=== PATIENT | male | born 1950 | race Caucasian/White ===

== ENCOUNTER → 2018-09-20 | Outpatient (CLI) | payer MEDICARE ==
[~2018-09-20] MED LIST: CLOP75 PO; Prinivil10 MG PO
[2018-09-23 14:30] LABS: Stool Occult Bld Immuno 1 Negative (NEGATIVE); Stool Occult Bld Immuno 2 Negative (NEGATIVE)
== END | disposition home or self-care (01) ==
LOC: LAB 09:00 → LAB SHORT 09:00 → LAB FUT 09-04 10:30
PROVIDERS: Internal Medicine Gastroenterology
DX: K57.90 Diverticulosis of intestine, part unspecified, without perforation or abscess without bleeding (principal); Z86.010 Personal history of colon polyps
CPT/HCPCS: 82274

== ENCOUNTER → 2019-06-02 | Outpatient (CLI) | payer BC ==
[2019-06-02 16:06] LABS: Percent Saturation 29.2 % (20.0-50.0)
== END | disposition home or self-care (01) ==
LOC: LAB 12:07 → LAB SHORT 12:07
PROVIDERS: Internal Medicine Hematology & Oncology
DX: E83.118 Other hemochromatosis (principal)
CPT/HCPCS: 36415; 82728; 83540; 83550

== ENCOUNTER → 2022-01-26 | Outpatient (CLI) | payer BC ==
[2022-01-26 14:50] LABS: BASOPHILS ABSOLUTE AUTO 0.13 K/mm3 (0.00-0.23); BASOPHILS PERCENT AUTO 1 % (0-2); EOSINOPHILS ABSOLUTE AUTO 0.19 K/mm3 (0.00-0.68); EOSINOPHILS PERCENT AUTO 2 % (0-6); Hematocrit 52.5 % (37.0-53.0); Hemoglobin 17.6 g/dL (13.5-17.5); IMMATURE GRAN ABSOLUTE AUTO 0.05 K/mm3 (0.00-0.10); IMMATURE GRAN PERCENT AUTO 1 % (0-1); LYMPHOCYTES ABSOLUTE AUTO 2.26 K/mm3 (0.84-5.20); LYMPHOCYTES PERCENT AUTO 24 % (21-46); MONOCYTES ABSOLUTE AUTO 1.02 K/mm3 (0.16-1.47); MONOCYTES PERCENT AUTO 11 % (4-13); Mean Corpuscular HGB 26.7 pg (26.0-34.0); Mean Corpuscular HGB Conc 33.5 g/dL (31.5-36.5); Mean Corpuscular Volume 80 fL (80-100); NEUTROPHILS PERCENT AUTO 61 % (41-73); Platelet Count 715 K/mm3 (150-400); RDW Standard Deviation 40.3 fL (35.1-46.3); Red Blood Cell Count 6.58 M/mm3 (4.30-5.90); White Blood Cell Count 9.35 K/mm3 (4.00-11.30)
[2022-01-26 14:58] LABS: Albumin, Blood 3.6 g/dL (3.4-5.0); Albumin/Globulin Ratio 1.2 (0.8-1.8); Bilirubin, Total 0.5 mg/dL (0.1-1.0); Bun/Creatinine Ratio 26.6 (12.0-20.0); Calcium, Blood 8.8 mg/dL (8.5-10.1); Creatinine, Blood 0.75 mg/dL (0.60-1.20); Percent Saturation 15.1 % (20.0-50.0); Phosphorus, Blood 3.8 mg/dL (2.5-4.9); Potassium, Blood 5.2 mmol/L (3.5-5.5); Total Protein, Blood 6.6 g/dL (6.4-8.2)
== END | disposition home or self-care (01) ==
LOC: LAB SHORT 11:24 → LAB 11:24
PROVIDERS: Internal Medicine Hematology & Oncology
DX: D45 Polycythemia vera (principal)
CPT/HCPCS: 80053; 83540; 83550; 84100; 85025

== ENCOUNTER → 2022-06-16 | Outpatient (CLI) | payer BC ==
[2022-06-16 15:17] LABS: BASOPHILS ABSOLUTE AUTO 0.16 K/mm3 (0.00-0.23); BASOPHILS PERCENT AUTO 2 % (0-2); EOSINOPHILS PERCENT AUTO 2 % (0-6); Hemoglobin 16.9 g/dL (13.5-17.5); IMMATURE GRAN ABSOLUTE AUTO 0.05 K/mm3 (0.00-0.10); IMMATURE GRAN PERCENT AUTO 1 % (0-1); LYMPHOCYTES ABSOLUTE AUTO 1.93 K/mm3 (0.84-5.20); LYMPHOCYTES PERCENT AUTO 20 % (21-46); MONOCYTES ABSOLUTE AUTO 1.07 K/mm3 (0.16-1.47); MONOCYTES PERCENT AUTO 11 % (4-13); Mean Corpuscular HGB 19.8 pg (26.0-34.0); Mean Corpuscular HGB Conc 29.3 g/dL (31.5-36.5); Mean Corpuscular Volume 68 fL (80-100); Mean Platelet Volume 10.5 fL (9.1-12.4); NEUTROPHILS ABSOLUTE AUTO 6.25 K/mm3 (1.96-9.15); NEUTROPHILS PERCENT AUTO 65 % (41-73); Platelet Count 670 K/mm3 (150-400); RDW Coefficient Variation 19.8 % (11.7-14.2); RDW Standard Deviation 38.9 fL (35.1-46.3); Red Blood Cell Count 8.53 M/mm3 (4.30-5.90); White Blood Cell Count 9.66 K/mm3 (4.00-11.30)
[2022-06-16 15:18] LABS: Hematocrit 57.7 % (37.0-53.0)
== END | disposition home or self-care (01) ==
LOC: LAB SHORT 12:49 → LAB 12:49
PROVIDERS: Internal Medicine Hematology & Oncology
DX: D45 Polycythemia vera (principal)
CPT/HCPCS: 85025

== ENCOUNTER 2023-09-13 10:30 | Emergency (ER) | payer BC ==
[~2023-09-13] VITALS: Ht 170.2 cm; Wt 74.8 kg
[~2023-09-13 10:30] MED LIST changes: +AMLO10 PO; +ASPI81CH PO
[2023-09-13 11:31] LABS: BASOPHILS ABSOLUTE AUTO 0.39 K/mm3 (0.00-0.23); BASOPHILS PERCENT AUTO 2 % (0-2); EOSINOPHILS ABSOLUTE AUTO 0.57 K/mm3 (0.00-0.68); EOSINOPHILS PERCENT AUTO 3 % (0-6); Hemoglobin 18.1 g/dL (13.5-17.5); IMMATURE GRAN ABSOLUTE AUTO 0.26 K/mm3 (0.00-0.10); IMMATURE GRAN PERCENT AUTO 1 % (0-1); LYMPHOCYTES ABSOLUTE AUTO 3.41 K/mm3 (0.84-5.20); LYMPHOCYTES PERCENT AUTO 16 % (21-46); MONOCYTES ABSOLUTE AUTO 1.58 K/mm3 (0.16-1.47); MONOCYTES PERCENT AUTO 7 % (4-13); Mean Corpuscular HGB Conc 29.8 g/dL (31.5-36.5); Mean Corpuscular Volume 60 fL (80-100); NEUTROPHILS ABSOLUTE AUTO 15.17 K/mm3 (1.96-9.15); NEUTROPHILS PERCENT AUTO 71 % (41-73); Platelet Count 885 K/mm3 (150-400); RDW Standard Deviation 41.1 fL (35.1-46.3); White Blood Cell Count 21.38 K/mm3 (4.00-11.30)
[2023-09-13 11:43] LABS: Albumin, Blood 3.5 g/dL (3.4-5.0); Albumin/Globulin Ratio 0.9 (0.8-1.8); Bilirubin, Total 0.9 mg/dL (0.1-1.0); Bun/Creatinine Ratio 16.8 (12.0-20.0); Calcium, Blood 8.9 mg/dL (8.5-10.1); Creatinine, Blood 0.96 mg/dL (0.60-1.20); Globulin, Blood 3.7 g/dL (2.2-4.0); Magnesium, Blood 2.1 mg/dL (1.6-2.4); Potassium, Blood 4.3 mmol/L (3.5-5.5); Total Protein, Blood 7.2 g/dL (6.4-8.2)
[2023-09-13 12:16] LABS: Hematocrit 60.7 % (37.0-53.0); Red Blood Cell Count >8.60 M/mm3 (4.30-5.90)
[2023-09-13 12:50] VITALS: BP 165/75
== END 2023-09-13 12:53 | disposition home or self-care (01) ==
LOC: ER 10:30
PROVIDERS: Emergency Medicine
DX: D45 Polycythemia vera (principal); E87.5 Hyperkalemia; I10 Essential (primary) hypertension; Z79.82 Long term (current) use of aspirin; Z79.899 Other long term (current) drug therapy; Z88.0 Allergy status to penicillin
CPT/HCPCS: 80053; 83735; 84484; 85025; 93005; 93010; 99283-25; J0612

== ENCOUNTER 2023-10-03 05:58 | Day surgery (SDC) | payer BC ==
[2023-10-03 06:28] VITALS: BP 181/90
[2023-10-03 06:30] VITALS: BP 184/90
[2023-10-03 07:22] VITALS: BP 130/90
[2023-10-03 07:30] VITALS: BP 124/72
[2023-10-03 07:48] VITALS: BP 127/72
[2023-10-03 07:50] VITALS: BP 130/77
--- NOTE | 2023-10-03 07:54 | NUR ---
PT AND VERBALIZED UNDERSTANDING OF WRITTEN AND VERBAL D/C INST. IV REMOVED. PT TAKEN OUT THE HRT CENTER VIA W/C.
== END 2023-10-03 23:08 | disposition home or self-care (01) ==
LOC: MHTC 05:58
DX: I35.8 Other nonrheumatic aortic valve disorders (principal); R07.89 Other chest pain
CPT/HCPCS: 93312; 93325; A9270; J2405; J2704; J7030

== ENCOUNTER 2023-10-22 08:59 | Day surgery (SDC) | payer BC ==
[~2023-10-22] VITALS: Ht 172.7 cm; Wt 71.0 kg
[~2023-10-22 08:59] MED LIST changes: +Lactated Ringer's 1,000 ML IV ONE; +propofoL 50 ML IV ONE
[2023-10-22] MEDS ORDERED: Lactated Ringer's 1,000 ML IV ONE (09:35)
[2023-10-22 10:43] VITALS: BP 112/75
== END 2023-10-22 10:45 | disposition home or self-care (01) ==
LOC: ORSCSDS 08:59
PROVIDERS: Internal Medicine Gastroenterology
PROC: 0DBN8ZX Excision of Sigmoid Colon, Via Natural or Artificial Opening Endoscopic, Diagnostic (ICD-10-PCS; principal; 2023-10-22 10:30)
DX: Z12.11 Encounter for screening for malignant neoplasm of colon (principal); Z86.010 Personal history of colon polyps; Q85.9 Phakomatosis, unspecified; R94.5 Abnormal results of liver function studies; K57.30 Diverticulosis of large intestine without perforation or abscess without bleeding; Z79.82 Long term (current) use of aspirin; Z79.899 Other long term (current) drug therapy
CPT/HCPCS: 88305; J2704; J7120

== ENCOUNTER → 2024-12-31 | Outpatient (CLI) | payer BC ==
[~2024-12-31] MED LIST changes: -Lactated Ringer's 1,000 ML IV ONE; -propofoL 50 ML IV ONE
[2024-12-31 16:06] LABS: BASOPHILS ABSOLUTE AUTO 0.62 K/mm3 (0.00-0.23); BASOPHILS PERCENT AUTO 2 % (0-2); EOSINOPHILS ABSOLUTE AUTO 0.88 K/mm3 (0.00-0.68); EOSINOPHILS PERCENT AUTO 3 % (0-6); Hemoglobin 17.7 g/dL (13.5-17.5); IMMATURE GRAN ABSOLUTE AUTO 0.74 K/mm3 (0.00-0.10); IMMATURE GRAN PERCENT AUTO 2 % (0-1); LYMPHOCYTES PERCENT AUTO 9 % (21-46); MONOCYTES ABSOLUTE AUTO 2.01 K/mm3 (0.16-1.47); MONOCYTES PERCENT AUTO 6 % (4-13); Mean Corpuscular HGB 17.5 pg (26.0-34.0); Mean Corpuscular HGB Conc 27.9 g/dL (31.5-36.5); Mean Corpuscular Volume 63 fL (80-100); NEUTROPHILS ABSOLUTE AUTO 26.36 K/mm3 (1.96-9.15); NEUTROPHILS PERCENT AUTO 78 % (41-73); Platelet Count 657 K/mm3 (150-400); RDW Coefficient Variation 25.6 % (11.7-14.2); RDW Standard Deviation 47.2 fL (35.1-46.3); White Blood Cell Count 33.71 K/mm3 (4.00-11.30)
[2024-12-31 17:30] LABS: Red Blood Cell Count >8.60 M/mm3 (4.30-5.90)
[2024-12-31 17:31] LABS: Hematocrit 63.5 % (37.0-53.0)
== END ==
LOC: LAB 14:00 → LAB SHORT 14:00
PROVIDERS: Internal Medicine Hematology & Oncology
DX: E61.1 Iron deficiency (principal)
CPT/HCPCS: 85025

== ENCOUNTER → 2025-05-07 | Outpatient (CLI) | payer BC ==
[2025-05-07 15:44] LABS: Hemoglobin 17.3 g/dL (13.5-17.5); Mean Corpuscular HGB Conc 26.5 g/dL (31.5-36.5); Mean Corpuscular Volume 64 fL (80-100); NRBC ABSOLUTE 0.04 K/mm3 (0.00-0.02); NRBC Auto 0.1 /100 WBC (0.0-0.2); Platelet Count 610 K/mm3 (150-400); RDW Coefficient Variation 26.1 % (11.7-14.2); RDW Standard Deviation 49.8 fL (35.1-46.3)
[2025-05-07 16:09] LABS: Hematocrit 65.2 % (37.0-53.0)
[2025-05-07 16:24] LABS: BAND PERCENT MAN 1 % (0-8); BASOPHILS ABSOLUTE MAN 2.05 K/mm3 (0.00-0.23); BASOPHILS PERCENT MAN 5 % (0-2); EOSINOPHILS ABSOLUTE MAN 1.23 K/mm3 (0.00-0.68); EOSINOPHILS PERCENT MAN 3 % (0-6); LYMPHOCYTES ABSOLUTE MAN 2.05 K/mm3 (0.84-5.20); LYMPHOCYTES PERCENT MAN 5 % (21-46); MONOCYTES ABSOLUTE MAN 1.23 K/mm3 (0.16-1.47); MONOCYTES PERCENT MAN 3 % (4-13); NEUTROPHILS ABSOLUTE MAN 34.44 K/mm3 (1.96-9.15); SEG NEUTROPHILS PERCENT MAN 83 % (41-73)
== END | disposition home or self-care (01) ==
LOC: LAB SHORT 14:06 → LAB 14:06
PROVIDERS: Internal Medicine Hematology & Oncology
DX: D45 Polycythemia vera (principal)
CPT/HCPCS: 85025

== ENCOUNTER 2025-07-29 19:56 | Inpatient (IN) | payer BC ==
[~2025-07-29] VITALS: Ht 172.7 cm; Wt 65.8 kg
[2025-07-29 20:34] LABS: Hemoglobin 17.4 g/dL (13.5-17.5); Mean Corpuscular HGB Conc 26.9 g/dL (31.5-36.5); Mean Corpuscular Volume 62 fL (80-100); RDW Coefficient Variation 25.9 % (11.7-14.2); RDW Standard Deviation 47.8 fL (35.1-46.3)
[2025-07-29 20:39] LABS: Source, Urine Voided
[2025-07-29 20:43] LABS: Hematocrit 64.6 % (37.0-53.0)
[2025-07-29 20:53] LABS: NRBC ABSOLUTE 0.03 K/mm3 (0.00-0.02); NRBC Auto 0.0 /100 WBC (0.0-0.2); Platelet Count 1101 K/mm3 (150-400)
[2025-07-29 20:57] LABS: Alanine Aminotransfer (ALT/SGP 38.0 U/L (12-78); Albumin, Blood 2.7 g/dL (3.4-5.0); Albumin/Globulin Ratio 1.0 (0.8-1.8); Anion Gap 14.0 mmol/L (3-11); Aspartate Aminotrans (AST/SGOT 44.0 U/L (12-37); Bilirubin, Total 1.3 mg/dL (0.1-1.0); Blood Urea Nitrogen 32.0 mg/dL (8-24); CO2, Blood 17.0 mmol/L (21-32); Calcium, Blood 8.6 mg/dL (8.5-10.1); Chloride, Blood 111.0 mmol/L (98-108); Creatinine, Blood 1.31 mg/dL (0.60-1.20); Globulin, Blood 2.8 g/dL (2.2-4.0); Glucose, Blood 97.0 mg/dL (70-99); Potassium, Blood 5.6 mmol/L (3.5-5.5); Sodium, Blood 136.0 mmol/L (136-145); Total Protein, Blood 5.5 g/dL (6.4-8.2)
[2025-07-29 20:58] LABS: Bilirubin, Urine Neg (Neg); Color, Urine Yellow (P-Yellow); Glucose Qualitative, Urine Neg (Neg); Ketones, Urine Neg (Neg); Leukocyte Esterase, Urine 1+ (Neg); Protein, Urine 4+ (Neg); Specific Gravity, Urine 1.020 (1.003-1.022); Urobilinogen, Urine NORM (Normal)
[2025-07-29 21:16] LABS: BAND PERCENT MAN 3 % (0-8); BASOPHILS ABSOLUTE MAN 0.62 K/mm3 (0.00-0.23); BASOPHILS PERCENT MAN 1 % (0-2); EOSINOPHILS ABSOLUTE MAN 1.24 K/mm3 (0.00-0.68); EOSINOPHILS PERCENT MAN 2 % (0-6); LYMPHOCYTES ABSOLUTE MAN 3.11 K/mm3 (0.84-5.20); LYMPHOCYTES PERCENT MAN 5 % (21-46); MONOCYTES ABSOLUTE MAN 1.86 K/mm3 (0.16-1.47); MONOCYTES PERCENT MAN 3 % (4-13); NEUTROPHILS ABSOLUTE MAN 55.41 K/mm3 (1.96-9.15); SEG NEUTROPHILS PERCENT MAN 86 % (41-73)
[2025-07-29] MEDS ORDERED: CefTRIAXone Sodium 2,000 MG in NS 100 ML IV ONE (21:30)
[2025-07-29] MEDS ORDERED: NS 1,000 ML IV SCH (21:45)
[2025-07-29 21:49] LABS: Prothrombin Time Results 13.0 Sec (9.7-11.5)
[2025-07-29] MEDS ORDERED: Sodium Bicarb 8.4% Inj 100 MEQ in Sodium Chloride 0.45% 1,000 ML IV SCH ×2 (22:55→23:00)
[2025-07-29] MEDS ORDERED: FLU VACC TS2025(65UP)/MF59C/PF 45 MCG/0.5 ML SYRINGE IM SCH (23:20)
[2025-07-30] VITALS (8 sets, daily range): BP systolic 153–182; BP diastolic 71–83
[2025-07-30] MEDS ORDERED: HydrALAZINE HCl 20 MG / ML 1ML Vial IV PRN (00:45)
[2025-07-30 00:53] LABS: Anion Gap 11.0 mmol/L (3-11); Blood Urea Nitrogen 32.0 mg/dL (8-24); CO2, Blood 21.0 mmol/L (21-32); Calcium, Blood 8.0 mg/dL (8.5-10.1); Chloride, Blood 110.0 mmol/L (98-108); Creatinine, Blood 1.35 mg/dL (0.60-1.20); Glucose, Blood 93.0 mg/dL (70-99); Potassium, Blood 4.6 mmol/L (3.5-5.5); Sodium, Blood 137.0 mmol/L (136-145)
--- NOTE | 2025-07-30 04:17 | NUR ---
PATIENT ADMITTED TO FLOOR DURING SHIFT. ADMITTED FOR ASCITIES. ABDOMEN IS DESTENDED. PATIENT IS NPO FOR PARACENTESIS TODAY. 1/2 NS WITH SODIUM BICARB IS RUNNING AT 75 ML/H. PATIENT HAS TELE IN PLACE-RUNNING NSR. DR. ROLDAN NOTIFIED OF ELEVATED BP. HYDRALAZINE PRN ORDERED. PATIENT IS SBA TO BATHROOM.MED REC COMPLETED. PATIENT ALERT AND ORIENTED X4, ABLE TO MAKE NEEDS KNOWN. PATIENT ABLE TO TURN SELF IN BED. BED IN LOW POSITION WITH WHEELS LOCKED. CALL LIGHT WITHIN REACH.
[2025-07-30] MEDS ORDERED: HydrALAZINE HCl 20 MG / ML 1ML Vial IV ONE (05:00)
--- NOTE | 2025-07-30 05:02 | NUR ---
DR. ROLDAN NOTFIED OF PATIENT BLOOD PRESSUE 168/77 AFTER GIVING HYDRALAZINE 10 MG. TELEPHONE ORDER FROM TO GIVE ANOTHER DOSE OF 10 MG HYDRALAZINE IV ONE TIME.
[2025-07-30 05:23] LABS: BASOPHILS ABSOLUTE AUTO 1.05 K/mm3 (0.00-0.23); BASOPHILS PERCENT AUTO 2 % (0-2); EOSINOPHILS ABSOLUTE AUTO 1.26 K/mm3 (0.00-0.68); EOSINOPHILS PERCENT AUTO 2 % (0-6); Hemoglobin 16.1 g/dL (13.5-17.5); IMMATURE GRAN ABSOLUTE AUTO 1.20 K/mm3 (0.00-0.10); IMMATURE GRAN PERCENT AUTO 2 % (0-1); LYMPHOCYTES ABSOLUTE AUTO 2.41 K/mm3 (0.84-5.20); LYMPHOCYTES PERCENT AUTO 4 % (21-46); MONOCYTES ABSOLUTE AUTO 3.23 K/mm3 (0.16-1.47); MONOCYTES PERCENT AUTO 6 % (4-13); Mean Corpuscular HGB Conc 27.2 g/dL (31.5-36.5); Mean Corpuscular Volume 61 fL (80-100); NEUTROPHILS ABSOLUTE AUTO 45.70 K/mm3 (1.96-9.15); NEUTROPHILS PERCENT AUTO 83 % (41-73); NRBC ABSOLUTE 0.02 K/mm3 (0.00-0.02); NRBC Auto 0.0 /100 WBC (0.0-0.2); RDW Coefficient Variation 25.6 % (11.7-14.2); RDW Standard Deviation 47.5 fL (35.1-46.3)
[2025-07-30 05:32] LABS: Hematocrit 59.3 % (37.0-53.0)
[2025-07-30 05:36] LABS: Platelet Count 1110 K/mm3 (150-400)
[2025-07-30 05:47] LABS: Alanine Aminotransfer (ALT/SGP 30.0 U/L (12-78); Albumin, Blood 2.3 g/dL (3.4-5.0); Albumin/Globulin Ratio 1.0 (0.8-1.8); Anion Gap 12.0 mmol/L (3-11); Aspartate Aminotrans (AST/SGOT 27.0 U/L (12-37); Bilirubin, Total 0.6 mg/dL (0.1-1.0); Blood Urea Nitrogen 29.0 mg/dL (8-24); CO2, Blood 18.0 mmol/L (21-32); Calcium, Blood 7.8 mg/dL (8.5-10.1); Chloride, Blood 113.0 mmol/L (98-108); Creatinine, Blood 1.21 mg/dL (0.60-1.20); Globulin, Blood 2.4 g/dL (2.2-4.0); Glucose, Blood 92.0 mg/dL (70-99); Potassium, Blood 4.6 mmol/L (3.5-5.5); Sodium, Blood 138.0 mmol/L (136-145); Total Protein, Blood 4.7 g/dL (6.4-8.2)
[2025-07-30 05:55] LABS: Albumin, Blood 2.3 g/dL (3.4-5.0); Lactate Dehydrogenase (Ld),Bld 314.0 U/L (100-240)
--- NOTE | 2025-07-30 06:13 | NUR ---
DR. LAUREANOREX NOTFIED OF PLATELET COUNT OF 1110. NO NEW ORDERS FROM
[2025-07-30] MEDS ORDERED: Albumin (Human) 25gm/100ml 100 ML IV ONE (11:55)
[2025-07-30 13:30] LABS: Phosphorus, Blood 3.3 mg/dL (2.5-4.9)
[2025-07-30 17:13] LABS: Anion Gap 12.0 mmol/L (3-11); Blood Urea Nitrogen 35.0 mg/dL (8-24); CO2, Blood 20.0 mmol/L (21-32); Calcium, Blood 8.2 mg/dL (8.5-10.1); Chloride, Blood 110.0 mmol/L (98-108); Creatinine, Blood 1.35 mg/dL (0.60-1.20); Ferritin, Serum 12.0 ng/mL (26-388); Glucose, Blood 88.0 mg/dL (70-99); Potassium, Blood 4.7 mmol/L (3.5-5.5); Sodium, Blood 137.0 mmol/L (136-145); Total Iron Binding Capacity 402.0 ug/dL (250-450)
--- NOTE | 2025-07-30 18:08 | NUR ---
SHIFT SUMMARY PT AOX4, INDEPENDENT IN THE ROOM. LOTS OF FAMILY AT THE BS. MULTIPLE LOOSE BM'S PROVIDER AWARE. REPOSITIONS SELF IN BED. NO EVENTS PER TELE. NO ACUTE COMPLAINTS. PARACENTESIS TODAY AND PT TOLERATED IT WELL. CALL LIGHT WITHIN REACH, BED LOCKED AND IN THE LOWEST POSITION. WILL REPORT TO ONCOMING NURSE.
[2025-07-31] VITALS (7 sets, daily range): BP systolic 155–175; BP diastolic 72–83
[2025-07-31 05:35] LABS: Hemoglobin 15.9 g/dL (13.5-17.5); Mean Corpuscular HGB Conc 27.6 g/dL (31.5-36.5); Mean Corpuscular Volume 62 fL (80-100); NRBC ABSOLUTE 0.02 K/mm3 (0.00-0.02); NRBC Auto 0.0 /100 WBC (0.0-0.2); RDW Coefficient Variation 25.6 % (11.7-14.2); RDW Standard Deviation 48.5 fL (35.1-46.3)
[2025-07-31 05:39] LABS: Hematocrit 57.7 % (37.0-53.0)
[2025-07-31 05:41] LABS: Platelet Count 1087 K/mm3 (150-400)
--- NOTE | 2025-07-31 05:42 | NUR ---
SOILED LINEN DISTRIBUTOR SUMMARY NO ACUTE EVENTS. PT ON TELE WITH NO EVENTS REPORTED OVERNIGHT. PT SON AT BEDSIDE T/O THE NIGHT. PT AFFECT FLAT/DEPRESSED AND FAIRLY WITHDRAWN WITH PT/NURSE INTERACTIONS. WHEN ASKING THE PT WHAT HE NEEDS, HIS GENERAL EXPRESSION TO "GET OUT OF THE HOSPITAL" VITALS REVIEWED AND STABLE. PT'S SYSTOLIC BLOOD PRESSURE REMAINED IN THE 150'S T/O THE NIGHT. PT DENIES NEEDS WHEN ASKED. PT DENIES PAIN/DISCOMFORT. NOTED LABS FOR PARACENTESIS FLUID REMAINED UNCOLLECTED. PLACED CALL TO LAB, WHO REQUESTED LABS BE COLLECTED IN [facility]. PER LAB, CUTURES WILL BE ABLE TO BE COMPLETED BUT SOME OF THE ORDERS MAY NOT DUE TO LATE COLLECTION. CHARGE NURSE INFORMED. REGULAR INTERVAL ROUNDING COMPLETE. CALL LIGHT ACCESSBLE. CARE ONGOING.
[2025-07-31 05:46] LABS: Anion Gap 11.0 mmol/L (3-11); Blood Urea Nitrogen 37.0 mg/dL (8-24); CO2, Blood 19.0 mmol/L (21-32); Calcium, Blood 8.1 mg/dL (8.5-10.1); Chloride, Blood 112.0 mmol/L (98-108); Creatinine, Blood 1.34 mg/dL (0.60-1.20); Glucose, Blood 76.0 mg/dL (70-99); Potassium, Blood 4.4 mmol/L (3.5-5.5); Sodium, Blood 138.0 mmol/L (136-145)
[2025-07-31 05:59] LABS: BAND PERCENT MAN 1 % (0-8); BASOPHILS ABSOLUTE MAN 0.47 K/mm3 (0.00-0.23); BASOPHILS PERCENT MAN 1 % (0-2); EOSINOPHILS ABSOLUTE MAN 2.82 K/mm3 (0.00-0.68); EOSINOPHILS PERCENT MAN 6 % (0-6); LYMPHOCYTES ABSOLUTE MAN 2.35 K/mm3 (0.84-5.20); LYMPHOCYTES PERCENT MAN 5 % (21-46); MONOCYTES ABSOLUTE MAN 2.82 K/mm3 (0.16-1.47); MONOCYTES PERCENT MAN 6 % (4-13); NEUTROPHILS ABSOLUTE MAN 38.67 K/mm3 (1.96-9.15); SEG NEUTROPHILS PERCENT MAN 81 % (41-73)
[2025-07-31] MEDS ORDERED: Sod Ferric Gluc Complx/Sucrose 125 MG in NS 100 ML IV SCH (09:00)
--- NOTE | 2025-07-31 18:14 | NUR ---
NO ACUTE CHANGES, DR CHRISTINE CONSULTED, WAITING FOR CULTURE RESULTS, IRON INFUSION DISCONTINUED TODAY, ONE GUIACC STOOL ORDERED AND ALREADY SENT. FAMILY HELPFUL AT BEDSIDE, CALL LIGHT WITH IN REACH, WILL RELAY TO PM RN
[2025-08-01] VITALS (12 sets, daily range): BP systolic 124–178; BP diastolic 61–81
[2025-08-01 00:27] LABS: Stool Occult Blood Guaiac 1 Pos (Neg)
--- NOTE | 2025-08-01 04:58 | NUR ---
SHIFT SUMMARY REMAINS A&OX4, INDEPENDENT IN ROOM. CONTINENT. EUPNEA ON RA. IV IN RAC. 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 UNFORTUNATELY PARACENTESIS ASCITES FLUID LABS NOT FULLY COMPLETED 07/31/25 FOR REASON UNKNOWN. PLAN FOR REPEAT PARACENTESIS 08/01, ADDT'L VENOUS DUPLEX OF ABDOMEN PER DR. SWIFT WHO ASSESSES PT OVER THIS EVENING. PLAN ALSO FOR ADDT'L LABS AND AN EGD IN THIS AM. SIPS OF WATER + ICE CHIPS TILL 7 AM, THEN NPO. OUTPATIENT PET SCAN WITH DR. CHRISTINE SCHEDULED IN 1 WK AFTER THANKSGIVING PER PT -- HE FOLLOWS WITH DR. Blankenship FOR P. VERA. STOOL HEME OCCULT +. DECREASED KIDNEY FUNCTION REMAINS UNIMPROVED. DR. SWIFT ORDERS IV ALBUMIN.
[2025-08-01 05:38] LABS: Hemoglobin 16.4 g/dL (13.5-17.5); Mean Corpuscular HGB Conc 27.2 g/dL (31.5-36.5); Mean Corpuscular Volume 61 fL (80-100); NRBC ABSOLUTE 0.03 K/mm3 (0.00-0.02); NRBC Auto 0.1 /100 WBC (0.0-0.2); RDW Coefficient Variation 25.2 % (11.7-14.2); RDW Standard Deviation 45.5 fL (35.1-46.3)
[2025-08-01 05:44] LABS: Hematocrit 60.2 % (37.0-53.0)
[2025-08-01 05:45] LABS: Platelet Count 1082 K/mm3 (150-400)
[2025-08-01] MEDS ORDERED: NS 250 ML IV PRN (05:55)
[2025-08-01] MEDS ORDERED: Albumin (Human) 25gm/100ml 100 ML IV SCH ×2 (06:00→07:00)
[2025-08-01 06:03] LABS: BAND PERCENT MAN 11 % (0-8); BASOPHILS ABSOLUTE MAN 0.94 K/mm3 (0.00-0.23); BASOPHILS PERCENT MAN 2 % (0-2); EOSINOPHILS ABSOLUTE MAN 1.41 K/mm3 (0.00-0.68); EOSINOPHILS PERCENT MAN 3 % (0-6); LYMPHOCYTES ABSOLUTE MAN 2.82 K/mm3 (0.84-5.20); LYMPHOCYTES PERCENT MAN 6 % (21-46); MONOCYTES ABSOLUTE MAN 1.88 K/mm3 (0.16-1.47); MONOCYTES PERCENT MAN 4 % (4-13); NEUTROPHILS ABSOLUTE MAN 39.99 K/mm3 (1.96-9.15); SEG NEUTROPHILS PERCENT MAN 74 % (41-73)
[2025-08-01 06:08] LABS: Alanine Aminotransfer (ALT/SGP 34.0 U/L (12-78); Albumin, Blood 2.6 g/dL (3.4-5.0); Albumin/Globulin Ratio 1.0 (0.8-1.8); Anion Gap 13.0 mmol/L (3-11); Aspartate Aminotrans (AST/SGOT 33.0 U/L (12-37); Bilirubin, Total 0.8 mg/dL (0.1-1.0); Blood Urea Nitrogen 41.0 mg/dL (8-24); CO2, Blood 19.0 mmol/L (21-32); Calcium, Blood 8.0 mg/dL (8.5-10.1); Chloride, Blood 107.0 mmol/L (98-108); Creatinine, Blood 1.3 mg/dL (0.60-1.20); Globulin, Blood 2.5 g/dL (2.2-4.0); Glucose, Blood 77.0 mg/dL (70-99); Potassium, Blood 4.7 mmol/L (3.5-5.5); Sodium, Blood 134.0 mmol/L (136-145); Total Protein, Blood 5.1 g/dL (6.4-8.2)
--- NOTE | 2025-08-01 12:02 | NUR ---
PT TRANSPORTED TO [facility]. AGREES WITH PLANNED PROCEDURE. History, Chart, Medications and Allergies reviewed before start of procedure. Patient confirms NPO status and agrees with scheduled surgery. DAUGHTER AT BEDSIDE.
--- NOTE | 2025-08-01 12:21 | NUR ---
08/01/25 1221 Sakina Pink History, Chart, Medications and Allergies reviewed before start of procedure. MONITOR INTACT WITH CONTINUOUS PULSE OXIMETRY, CONTINUOUS END TITAL CO2, 3-LEAD EKG AND INTERMITTENT BLOOD PRESSURE. O2 VIA POM INTACT THROUGHOUT SEDATION/PROCEDURE. 3-LEAD EKG REVIEWED WITH PHYSICIAN PRIOR TO START OF PROCEDURE. Bite Block Placed. GENARO MCINTOSH CRNA PROVIDING ANESTHESIA CARE, SEE ANESTHESIA RECORD.
[2025-08-01] MEDS ORDERED: CARV3.125 PO (16:00)
[2025-08-01] MEDS ORDERED: FOLI1 PO (16:00)
[2025-08-01] MEDS ORDERED: HYDURE500 PO (16:01)
--- NOTE | 2025-08-01 16:29 | NUR ---
REVIEWED DISCHARGE INSTRUCTIONS WITH PATIENT. REVIEWED MEDICATIONS AND INSTRUCTIONS, FOLLOW UP APPOINTMENTS. NO CONCERNS OR QUESTIONS
[2025-08-02 23:48] LABS: ALPHA-1-ANTITRYPSIN 190 mg/dL (90-200)
[2025-08-03 07:04] LABS: ANTI-NUCLEAR AB ANA,IGG ELISA None Detected (None Detected)
[2025-08-03 07:32] LABS: FACTIN SMOOTH MUSCLE,IGG ELISA 2 Units (0-19); MITOCHONDRIAL (M2) AB,IGG 1.1 Units (0.0-24.9)
[2025-08-03 07:59] LABS: CERULOPLASMIN 22 mg/dL (15-30)
== END 2025-08-01 16:56 | disposition home or self-care (01) | DRG 433 ==
LOC: ER 19:56 → MEDS 19:57 → ENPENDDIS 08-01 15:24 → MEDS 08-01 16:56
PROVIDERS: Emergency Medicine; Internal Medicine Gastroenterology; Physician Assistant; Student in an Organized Health Care Education/Training Program; ADMIT Internal Medicine
PROC: 3E03329 Introduction of Other Anti-infective into Peripheral Vein, Percutaneous Approach (ICD-10-PCS; 2025-07-29)
PROC: 0DB78ZX Excision of Stomach, Pylorus, Via Natural or Artificial Opening Endoscopic, Diagnostic (ICD-10-PCS; principal; 2025-08-01 10:30)
DX: K74.69 Other cirrhosis of liver (principal); E87.20 Acidosis, unspecified; K76.6 Portal hypertension; K92.2 Gastrointestinal hemorrhage, unspecified; N39.0 Urinary tract infection, site not specified; R18.8 Other ascites; N17.9 Acute kidney failure, unspecified; D45 Polycythemia vera; I10 Essential (primary) hypertension; D75.839 Thrombocytosis, unspecified; D72.824 Basophilia; Z98.890 Other specified postprocedural states; Z79.82 Long term (current) use of aspirin; Z79.899 Other long term (current) drug therapy; Z82.49 Family history of ischemic heart disease and other diseases of the circulatory system; Z82.3 Family history of stroke; Z82.61 Family history of arthritis; Z82.5 Family history of asthma and other chronic lower respiratory diseases; Z88.0 Allergy status to penicillin
CPT/HCPCS: 36415; 49083; 74177; 80048; 80053; 81001; 82010; 82040; 82103; 82105; 82270; 82390; 82607; 82728; 82746; 82947; 83540; 83550; 83605; 83615; 83690; 84100; 85025; 85384; 85610; 85730; 86015; 86038; 86381; 86850; 86900; 86901; 87040; 87070; 87086; 87205; 88108; 88305; 88342; 93005; 93010; 93975; 96374-59; 99285-25; A9270; G0378; J0360; J0696; J2704; J7030; J7050; J7120; P9047; Q9967